=== PATIENT | male | born 1965 | race African-American/Black ===

== ENCOUNTER 2016-08-23 13:51 | Emergency (ER) | payer OTHER ==
[~2016-08-23 13:51] MED LIST: ALBUTEROL17 G1 IH; BENZONATATE PO; COMBIVENT INH14.7 GM INH; DEPAKOTE; DEPAKOTE ER PO; DEPAKOTE PO; DITROPAN5 MG PO; FIRST AID ANTIB30 G1 TP; FLEXERIL10 M1 PO; GLUCOVANCE PO; IBUPROFEN800 MG PO; KEPPRA750 MG PO; LASIX PO; TEGRETOL; TEGRETOL PO; TEGRETOL XR200 MG PO; TEGRETOL XR400 MG PO; TOPAMAX PO; TOPROL XL PO; TYLENOL #3 PO; VOLTAREN75 MG PO; ZITHROMAX PO
== END 2016-08-23 17:48 | disposition home or self-care (01) ==
LOC: CED 13:51
DX: G40.909 Epilepsy, unspecified, not intractable, without status epilepticus (principal); E11.9 Type 2 diabetes mellitus without complications; Z88.0 Allergy status to penicillin; Z88.8 Allergy status to other drugs, medicaments and biological substances
CPT/HCPCS: 82947; 99284